=== PATIENT | male | born 1930 | race Caucasian/White ===

== ENCOUNTER → 2018-05-09 | Outpatient (CLI) | payer MEDICARE, BC | END | disposition home or self-care (01) | LOC: ROC 04-27 16:01 | PROVIDERS: ATTEND Radiology Radiation Oncology | DX: R91.8 Other nonspecific abnormal finding of lung field (principal); I25.2 Old myocardial infarction; Z87.891 Personal history of nicotine dependence; I10 Essential (primary) hypertension; E11.9 Type 2 diabetes mellitus without complications; M19.90 Unspecified osteoarthritis, unspecified site | CPT/HCPCS: G0463 ==

== ENCOUNTER 2018-05-25 05:25 | Day surgery (SDC) | payer MEDICARE, BC ==
[~2018-05-25] VITALS: Ht 165.1 cm; Wt 86.0 kg
[2018-05-25 06:04] VITALS: BP 150/74
[2018-05-25] MEDS ORDERED: FENTANYL PF 100 MCG/2ML ONE (07:41)
[2018-05-25] MEDS ORDERED: MIDAZOLAM 1 MG/ML, 5ML ONE (07:42)
[2018-05-25] MEDS ORDERED: NALOXONE 1 MG/ML, 2ML ONE (07:42)
[2018-05-25] MEDS ORDERED: FLUMAZENIL 0.1 MG/1 ML, 5ML ONE (07:42)
[2018-05-25] MEDS ORDERED: LIDOCAINE-MPF 1%, 5ML ONE (07:43)
== END 2018-05-25 15:00 | disposition home or self-care (01) ==
LOC: OUT 05:25
PROVIDERS: ATTEND Internal Medicine Critical Care Medicine
DX: C34.12 Malignant neoplasm of upper lobe, left bronchus or lung (principal); I10 Essential (primary) hypertension; I25.2 Old myocardial infarction; E11.9 Type 2 diabetes mellitus without complications; M19.90 Unspecified osteoarthritis, unspecified site; E78.5 Hyperlipidemia, unspecified; Z87.891 Personal history of nicotine dependence; Z79.899 Other long term (current) drug therapy; Z98.890 Other specified postprocedural states
CPT/HCPCS: 32405; 32553; 71045; 77014; 88305; 99156; 99157; A4648; J2250; J3010; J2310

== ENCOUNTER → 2018-08-30 | Outpatient (CLI) | payer MEDICARE, BC | END | disposition home or self-care (01) | LOC: CFH 10:51 | PROVIDERS: ATTEND Radiology Radiation Oncology | DX: C34.92 Malignant neoplasm of unspecified part of left bronchus or lung (principal) | CPT/HCPCS: 71250 ==

== ENCOUNTER → 2018-09-02 | Outpatient (CLI) | payer MEDICARE, BC | END | disposition home or self-care (01) | LOC: ROC 07:15 | PROVIDERS: ATTEND Radiology Radiation Oncology | DX: Z08 Encounter for follow-up examination after completed treatment for malignant neoplasm (principal); C34.12 Malignant neoplasm of upper lobe, left bronchus or lung; Z88.8 Allergy status to other drugs, medicaments and biological substances | CPT/HCPCS: G0463 ==

== ENCOUNTER 2019-03-08 21:23 | Inpatient (IN) | payer MEDICARE, BC ==
[~2019-03-08] VITALS: Ht 167.6 cm; Wt 84.5 kg
--- NOTE | 2019-03-08 21:31 | NUR ---
Pt presents to ed via [facility] c/o increased weakness, sob, and bilateral leg swelling at home. Hx of CHF. Denies any hx of DVT's. Denies cp. 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 Pt placed on monitoring and placed appropriately. Vss. Call light within reach. Pa at bedside for assessment. Report to primary [place].
--- NOTE | 2019-03-08 21:42 | NUR ---
Received report assumed patient care. Provided with warm blanket. associate technician at bedside. Awaiting labs/cxr results.
--- NOTE | 2019-03-08 21:51 | NUR ---
Patient's family to bedside, updated where patient is in on his plan of care. Still awaiting results from labs.
--- NOTE | 2019-03-08 22:02 | NUR ---
Patient out of room. To ultrasound. Awaiting labs, cxr and u/s results.
[2019-03-08 22:23] LABS: BASOPHILS # (AUTO) 0.01 x10^3/uL (0-0.1); BASOPHILS % (AUTO) 0 % (0-1); EOSINOPHILS # (AUTO) 0.15 x10^3/uL (0-0.4); EOSINOPHILS % (AUTO) 4 % (1-7); LYMPHOCYTES # (AUTO) 0.83 x10^3/uL (1-3.4); LYMPHOCYTES % (AUTO) 22 % (22-44); MD NO; MEAN CORPUSCULAR HEMOGLOBIN 34.3 pg (27.5-34.5); MEAN CORPUSCULAR HGB CONC 33.1 g/dL (33.2-36.2); MEAN CORPUSCULAR VOLUME 103.5 fL (81-97); MEAN PLATELET VOLUME 8.4 fL (7.4-10.4); MONOCYTES # (AUTO) 0.34 x10^3/uL (0.2-0.8); MONOCYTES % (AUTO) 9 % (2-9); NEUTROPHILS # (AUTO) 2.48 x10^3/uL (1.8-6.8); NEUTROPHILS % (AUTO) 65 % (42-75); PLATELET COUNT 137 x10^3/uL (130-400); RED CELL DISTRIBUTION WIDTH 15.9 % (9.4-14.8)
[2019-03-08 22:41] LABS: ALANINE AMINOTRANSFERASE 22 U/L (12-78); ALBUMIN 3.8 g/dL (3.4-5.0); ALKALINE PHOSPHATASE 97 U/L (45-117); ANION GAP 9 mmol/L (5-15); BILIRUBIN,TOTAL 0.4 mg/dL (0.2-1.0); CALCIUM 8.3 mg/dL (8.5-10.1); CHLORIDE 99 mmol/L (98-107); CREATININE 1.94 mg/dL (0.7-1.3); TOTAL PROTEIN 6.6 g/dL (6.4-8.2)
[2019-03-08 22:43] LABS: TROPONIN I 0.113 ng/mL (0.000-0.045)
[2019-03-08] MEDS ORDERED: FUROSEMIDE 40 MG/4 ML ONE (22:46)
--- NOTE | 2019-03-08 22:49 | NUR ---
Received critical results and verbally reported to Dr. Patel. New orders received.
[2019-03-08] MEDS ORDERED: FUROSEMIDE 40 MG/4 ML IV ONE (23:00)
[2019-03-08] MEDS ORDERED: ASPIRIN 81 MG TABLET CHEW PO ONE (23:30)
[2019-03-08] MEDS ORDERED: ENOXAPARIN 80 MG/0.8 ML SQ ONE (23:30)
[2019-03-08 23:38] LABS: INTERNATIONAL NORMALIZED RATIO 1.09 (0.93-1.1); PROTHROMBIN TIME 11.4 Seconds (9.6-11.5)
[2019-03-08] MEDS ORDERED: ENOXAPARIN 80 MG/0.8 ML ONE (23:40)
[2019-03-08] MEDS ORDERED: ASPIRIN 81 MG TABLET CHEW ONE (23:41)
--- NOTE | 2019-03-08 23:46 | NUR ---
Provider to bedside, RN right behind. Admission explained to family. Family and patient agreeable. RN spoke with admitting hospitalist. Hospitalist informed RN that heparin had been discontinued. RN to bedside; gave asa and lovenox per MAR. Patient also given IS, instructed and demonstrated exciting. Awaiting admission bed.
[2019-03-09] MEDS ORDERED: ACETAMINOPHEN 325 MG TABLET PO PRN
[2019-03-09] MEDS ORDERED: TAMSULOSIN 0.4 MG CAP.ER.24H PO ONE
[2019-03-09] MEDS ORDERED: HYDROcodone/APAP 5/325 TABLET PO PRN
[2019-03-09] MEDS ORDERED: ONDANSETRON 2MG/ML, 2ML IVPush PRN
[2019-03-09 01:13] VITALS: BP 119/74
[2019-03-09 06:14] LABS: BASOPHILS # (AUTO) 0.03 x10^3/uL (0-0.1); BASOPHILS % (AUTO) 1 % (0-1); EOSINOPHILS # (AUTO) 0.27 x10^3/uL (0-0.4); EOSINOPHILS % (AUTO) 5 % (1-7); LYMPHOCYTES # (AUTO) 1.96 x10^3/uL (1-3.4); LYMPHOCYTES % (AUTO) 39 % (22-44); MD NO; MEAN CORPUSCULAR HEMOGLOBIN 34.7 pg (27.5-34.5); MEAN CORPUSCULAR HGB CONC 33.5 g/dL (33.2-36.2); MEAN CORPUSCULAR VOLUME 103.5 fL (81-97); MEAN PLATELET VOLUME 8.2 fL (7.4-10.4); MONOCYTES # (AUTO) 0.49 x10^3/uL (0.2-0.8); MONOCYTES % (AUTO) 10 % (2-9); NEUTROPHILS # (AUTO) 2.32 x10^3/uL (1.8-6.8); NEUTROPHILS % (AUTO) 46 % (42-75); PLATELET COUNT 139 x10^3/uL (130-400); RED BLOOD COUNT 2.79 x10^6/uL (4.38-5.82); RED CELL DISTRIBUTION WIDTH 15.6 % (9.4-14.8)
[2019-03-09 06:16] LABS: ANION GAP 6 mmol/L (5-15); CALCIUM 8.5 mg/dL (8.5-10.1); CHLORIDE 101 mmol/L (98-107)
[2019-03-09 06:18] LABS: HEMOGLOBIN A1C 8.1 % (4.2-6.3)
[2019-03-09] MEDS: ASPIRIN 81 MG TABLET EC PO SCH (06:20)
[2019-03-09 06:37] LABS: TROPONIN I 0.157 ng/mL (0.000-0.045)
[2019-03-09] MEDS ORDERED: DEXTROSE 4 GM TAB.CHEW PO PRN (07:00)
[2019-03-09] MEDS ORDERED: GLUCAGON 1 MG IM PRN (07:00)
[2019-03-09] MEDS: INSULIN LISPRO 100 UNITS/ML, PEN SQ-INSULIN SCH ×4 (07:00→21:00)
[2019-03-09] MEDS ORDERED: DEXTROSE 50%, 50ML SYRINGE IVPush PRN (07:00)
[2019-03-09 08:45] VITALS: BP 143/77
[2019-03-09] MEDS: POTASSIUM CHLORIDE 20 MEQ PACKET PO SCH (10:47)
[2019-03-09] MEDS: SODIUM CHLORIDE FLUSH 10ML SYR IVF SCH ×2 (10:47→21:16)
[2019-03-09] MEDS: FUROSEMIDE 40 MG/4 ML IV SCH ×2 (10:47→23:45)
[2019-03-09 10:55] VITALS: BP 157/77
[2019-03-09 12:38] LABS: TROPONIN I 0.141 ng/mL (0.000-0.045)
[2019-03-09] MEDS: INSULIN GLARGINE 100 UNITS/ML, PEN SQ-INSULIN SCH (13:22)
[2019-03-09] MEDS: HEPARIN 5,000 UNITS/ML, 1ML SQ SCH ×2 (13:23→21:16)
[2019-03-09 14:37] VITALS: BP 147/71
[2019-03-09] MEDS ORDERED: FUROSEMIDE 40 MG/4 ML IV SCH (17:00)
[2019-03-09 18:57] VITALS: BP 144/67
[2019-03-09] MEDS ORDERED: INSULIN GLARGINE 100 UNITS/ML, PEN SQ-INSULIN SCH (21:00)
[2019-03-09 23:46] VITALS: BP 117/57
[2019-03-10 02:08] VITALS: BP 121/77
[2019-03-10 05:26] LABS: ALANINE AMINOTRANSFERASE 18 U/L (12-78); ALBUMIN 3.5 g/dL (3.4-5.0); ANION GAP 7 mmol/L (5-15); CALCIUM 8.3 mg/dL (8.5-10.1); CHLORIDE 98 mmol/L (98-107); CREATININE 1.73 mg/dL (0.7-1.3)
[2019-03-10 05:29] LABS: ALKALINE PHOSPHATASE 90 U/L (45-117); BILIRUBIN,TOTAL 0.4 mg/dL (0.2-1.0); TOTAL PROTEIN 6.3 g/dL (6.4-8.2)
[2019-03-10] MEDS: ASPIRIN 81 MG TABLET EC PO SCH (06:00)
[2019-03-10] MEDS: HEPARIN 5,000 UNITS/ML, 1ML SQ SCH ×3 (06:01→21:34)
[2019-03-10] MEDS: INSULIN LISPRO 100 UNITS/ML, PEN SQ-INSULIN SCH ×4 (07:00→21:49)
[2019-03-10 09:01] VITALS: BP 132/55
[2019-03-10] MEDS: FUROSEMIDE 40 MG/4 ML IV SCH ×2 (09:05→21:34)
[2019-03-10] MEDS: POTASSIUM CHLORIDE 20 MEQ PACKET PO SCH (09:05)
[2019-03-10] MEDS: SODIUM CHLORIDE FLUSH 10ML SYR IVF SCH ×2 (09:06→21:33)
[2019-03-10] MEDS: INSULIN GLARGINE 100 UNITS/ML, PEN SQ-INSULIN SCH (13:20)
[2019-03-10 15:55] VITALS: BP 119/63
[2019-03-10] MEDS ORDERED: MAGNESIUM SULFATE 4 GM in SODIUM CHLORIDE 0.9% 100 ML IV ONE (18:00)
[2019-03-10 20:32] VITALS: BP 135/74
[2019-03-11 00:51] VITALS: BP 150/71
[2019-03-11] MEDS: ASPIRIN 81 MG TABLET EC PO SCH (05:24)
[2019-03-11] MEDS: HEPARIN 5,000 UNITS/ML, 1ML SQ SCH ×3 (05:24→21:58)
[2019-03-11 05:54] LABS: ANION GAP 9 mmol/L (5-15); CALCIUM 8.7 mg/dL (8.5-10.1); CHLORIDE 97 mmol/L (98-107)
[2019-03-11] MEDS: INSULIN LISPRO 100 UNITS/ML, PEN SQ-INSULIN SCH ×4 (07:00→21:57)
[2019-03-11] MEDS: SODIUM CHLORIDE FLUSH 10ML SYR IVF SCH ×2 (09:00→21:57)
[2019-03-11 09:09] VITALS: BP 145/76
[2019-03-11] MEDS: SPIRONOLACTONE 25 MG TABLET PO SCH (09:13)
[2019-03-11] MEDS: POTASSIUM CHLORIDE 20 MEQ PACKET PO SCH (09:13)
[2019-03-11] MEDS: FUROSEMIDE 40 MG/4 ML IV SCH ×2 (09:14→16:36)
[2019-03-11] MEDS: INSULIN GLARGINE 100 UNITS/ML, PEN SQ-INSULIN SCH (12:02)
[2019-03-11 13:39] VITALS: BP 120/56
[2019-03-11 21:09] VITALS: BP 120/68
[2019-03-12 01:44] VITALS: BP 127/72
[2019-03-12] MEDS: ASPIRIN 81 MG TABLET EC PO SCH (05:19)
[2019-03-12] MEDS: FUROSEMIDE 40 MG/4 ML IV SCH (05:20)
[2019-03-12] MEDS: HEPARIN 5,000 UNITS/ML, 1ML SQ SCH (05:20)
[2019-03-12] MEDS: POTASSIUM CHLORIDE 20 MEQ PACKET PO SCH (08:07)
[2019-03-12] MEDS: SPIRONOLACTONE 25 MG TABLET PO SCH (08:07)
[2019-03-12] MEDS: INSULIN LISPRO 100 UNITS/ML, PEN SQ-INSULIN SCH (08:07)
[2019-03-12] MEDS: SODIUM CHLORIDE FLUSH 10ML SYR IVF SCH (08:07)
[2019-03-12 09:13] VITALS: BP 159/83
[2019-03-12] MEDS ORDERED: POTA20PA25 PO (09:51)
[2019-03-12] MEDS ORDERED: ASPI81TA45 PO (09:51)
[2019-03-12] MEDS ORDERED: METO25TA91 PO (09:51)
[2019-03-12] MEDS ORDERED: FURO-92 PO (09:51)
[2019-03-12] MEDS ORDERED: SPIR25TA PO (09:51)
== END 2019-03-12 12:05 | disposition home health service (06) | DRG 281 ==
LOC: ED 23:30 → EDIP 23:34 → 5SO 03-09 00:38
PROVIDERS: ADMIT Internal Medicine; ATTEND Internal Medicine
DX: I50.21 Acute systolic (congestive) heart failure (principal); I21.A1 Myocardial infarction type 2; N17.9 Acute kidney failure, unspecified; C34.90 Malignant neoplasm of unspecified part of unspecified bronchus or lung; I25.2 Old myocardial infarction; E11.9 Type 2 diabetes mellitus without complications; I25.10 Atherosclerotic heart disease of native coronary artery without angina pectoris; N40.0 Benign prostatic hyperplasia without lower urinary tract symptoms; D64.9 Anemia, unspecified; E83.42 Hypomagnesemia; I08.3 Combined rheumatic disorders of mitral, aortic and tricuspid valves; Z87.891 Personal history of nicotine dependence; Z95.1 Presence of aortocoronary bypass graft; Z90.49 Acquired absence of other specified parts of digestive tract; Z95.0 Presence of cardiac pacemaker; Z79.4 Long term (current) use of insulin; Z79.82 Long term (current) use of aspirin; Z79.899 Other long term (current) drug therapy; Z88.8 Allergy status to other drugs, medicaments and biological substances
CPT/HCPCS: 36415; 71045; 80048; 80053; 82962; 83036; 83735; 83880; 84100; 84484; 85025; 85520; 85610; 85730; 93005; 93306; 93970; 96372; 96374; G0378; J1644; J1650; J1940; J3475; J1815